=== PATIENT | male | born 1940 | race Caucasian/White ===

== ENCOUNTER 2023-09-14 06:23 | Day surgery (SDC) | payer BC, SELFPAY ==
[2023-08-30 09:50] VITALS: BMI 27.6
[2023-08-30 10:05] LABS: Hematocrit 42.9 % (39.0-52.0); Hemoglobin 14.1 g/dL (13.0-18.0); Mean Corp Hgb Conc. 32.9 g/dL (33.0-37.0); Mean Corpuscular Hgb 31.7 pg (27.0-31.0); Mean Corpuscular Volume 96.4 fL (80.0-94.0); Mean Platelet Volume 10.1 fL (7.4-10.4); Platelet Count 167 10^3/uL (130-400); Red Blood Cell Count 4.45 10^6/uL (4.70-6.10); Red Cell Dist. Width 13.2 % (11.5-14.5); White Blood Cell Count 4.8 10^3/uL (4.8-10.8)
[2023-08-30 10:21] LABS: Blood Urea Nitrogen 17 mg/dl (9-20); Calcium 9.2 mg/dl (8.4-10.2); Carbon Dioxide 26 mmol/L (22-30); Chloride 107 mmol/L (98-107); Estimated Creatinine Clearance 66 ml/min; Glucose 131 mg/dl (70-99); Potassium 4.1 mmol/L (3.5-5.1); Sodium 139 mmol/L (135-145); eGFR > 60.00
[2023-09-14] VITALS (9 sets, daily range): BP systolic 157–170; BP diastolic 93–98; BMI 27.6
[2023-09-14] MEDS: TYLENOL 1000 MG PO (12:48)
== END 2023-09-14 18:55 | disposition home or self-care (01) ==
LOC: SDS 06:23
PROVIDERS: ATTENDING PHYSICIAN Surgery; FAMILY PHYSICIAN Family Medicine
DX: K40.90 Unilateral inguinal hernia, without obstruction or gangrene, not specified as recurrent (principal); K42.9 Umbilical hernia without obstruction or gangrene
CPT/HCPCS: 49650; 49591; 36415; 80048; 85027; C1781

== ENCOUNTER 2024-09-23 06:21 | Day surgery (SDC) | payer BC, SELFPAY | END 2024-09-23 13:37 | disposition home or self-care (01) | LOC: GI 06:21 | PROVIDERS: ATTENDING PHYSICIAN Surgery | DX: Z12.11 Encounter for screening for malignant neoplasm of colon (principal); K64.9 Unspecified hemorrhoids; K57.30 Diverticulosis of large intestine without perforation or abscess without bleeding; D12.2 Benign neoplasm of ascending colon | CPT/HCPCS: 45385; 46221; 88305 ==

== ENCOUNTER → 2024-10-06 06:15 | Day surgery (SDC) | payer BC, SELFPAY ==
[2024-09-10 13:51] VITALS: BMI 27.8
[2024-09-10 14:35] LABS: Hematocrit 40.4 % (39.0-52.0); Hemoglobin 13.1 g/dL (13.0-18.0); Mean Corp Hgb Conc. 32.4 g/dL (33.0-37.0); Mean Corpuscular Hgb 31.7 pg (27.0-31.0); Mean Corpuscular Volume 97.8 fL (80.0-94.0); Mean Platelet Volume 10.2 fL (7.4-10.4); Platelet Count 166 10^3/uL (130-400); Red Blood Cell Count 4.13 10^6/uL (4.70-6.10); Red Cell Dist. Width 13.4 % (11.5-14.5); White Blood Cell Count 4.6 10^3/uL (4.8-10.8)
[2024-09-10 15:45] LABS: ALT (SGPT) 27 U/L (0-50); AST (SGOT) 26 U/L (17-59); Albumin 4.2 g/dl (3.5-5.0); Alkaline Phosphatase 85 U/L (38-126); Blood Urea Nitrogen 20 mg/dl (9-20); Calcium 9.6 mg/dl (8.4-10.2); Carbon Dioxide 29 mmol/L (22-30); Chloride 107 mmol/L (98-107); Estimated Creatinine Clearance 72 ml/min; Glucose 140 mg/dl (70-99); HDL Cholesterol 46 mg/dl; LDL Cholesterol, Calculated 75 mg/dl; Potassium 4.3 mmol/L (3.5-5.1); Sodium 144 mmol/L (135-145); Total Bilirubin 0.6 mg/dl (0.2-1.3); Total Cholesterol 137 mg/dl (50-199); Total Protein 6.6 g/dl (6.3-8.2); Triglyceride 80 mg/dl (10-149); Uric Acid 6.8 mg/dl (3.5-8.5); Very Low Density Lipoprotein 16 mg/dl (0-30); eGFR > 60.00
[2024-09-11 09:03] LABS: Glycohemoglobin (HgbA1c) 6.1 % (4.0-5.6)
[2024-09-11 12:37] LABS: Mumps Virus IgG Positive; Rubeola (Measles) IgG Positive
[2024-09-11 19:59] LABS: Rubella Negative
[2024-09-13 15:48] LABS: PSA Total 0.7 ng/mL (0.0-4.0)
--- NOTE | 2024-09-22 10:07 | VNURNOTE ---
Patient is scheduled for an elective R TKA on 10/06 - he is a same day patient with Dr Sesay. Spoke with patient's spouse Miranda prior to surgery. Introduced role of [facility] VN Liaison. She reports that patient lives with his in a MULTI
story home.
There is 1 step to enter and a flight of steps to the second floor. There is a first floor set up with a bathroom available. patient will obtain a rolling walker.
PCP is Dr Randee Preston
Discussed [facility] joint protocol and post surgical plans.
Reviewed that he will have VN services initially and will then start outpatient PT.
Spouse selects [facility] VN for home care needs and will go to [facility] for outpatient PT. TBD. Advised spouse to schedule outpt PT for the end of the week of surgery.
Spouse is in agreement with plan and states that she and son will be home with patient. Advised to bring RW day of surgery. Referral placed in [facility].
Plan: [facility] VN per [facility] joint protocol on 10/06 then outpt PT TBD
[2024-09-30 09:02] VITALS: BMI 27.8
[2024-10-06] VITALS (12 sets, daily range): BP systolic 114–158; BP diastolic 73–96
[2024-10-06] MEDS: CELEBREX 200 MG PO (07:18)
[2024-10-06] MEDS: TYLENOL 650 MG PO (07:18)
[2024-10-06] MEDS: NORMOSOL-R/PLASMALYTE-A 1000 IV (07:24)
--- NOTE | 2024-10-06 09:25 | W.DS.TRANS ---
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
-
Discharge Instructions:
Discharge Diagnosis/Procedures R TKA 10/06/24
Diet As tolerated
Activity With Walker
Additional Activity -use venous compression device when sitting for
prolonged periods or sleeping
Driving Restrictions No driving
Other Services PT
Instructions:
Stand-Alone Forms: SDS Total Hip and Knee D/C
Changes to Home Medications: Yes
Discharge Medications:
DC Medications w/original date entered in [employer]
glucosamine sulf dipot chlr,msm,chond 550 mg-C 30 mg-mouna 1 mg capsule (Glucosamine Chondroitin) 1 cap PO DAILY 09/10/23
multivitamin 1 tab PO DAILY 09/10/23
omega [id number]-fish oil 1,000 mg (120 mg-180 mg) capsule (Fish Oil) 1 cap PO BID 09/10/23
simvastatin 10 mg tablet 10 mg PO HS 09/10/23
tamsulosin 0.4 mg capsule (Flomax) 0.4 mg PO HS 09/10/23
turmeric root extract 500 mg tablet 1,000 mg PO BID 09/10/23
Collagen Plus Vitamin C 6,000 mg PO DAILY 09/09/24
saw palmetto 450 mg capsule 450 mg PO HS 09/09/24
dexamethasone 4 mg tablet 4 mg PO BID inflammation #6 tabs 09/10/24
famotidine 20 mg tablet 20 mg PO HS GI prophylaxis #30 tabs 09/10/24
gabapentin 300 mg capsule 300 mg PO HS sleep/pain #10 caps 09/10/24
mupirocin 2 % topical ointment 1 applic topical BID infection prevention #1 tube 09/10/24
ondansetron 4 mg disintegrating tablet 4 mg PO Q6H PRN n/v #20 tabs 09/10/24
oxycodone 5 mg tablet 5 mg PO Q6H PRN 1 tab moderate pain, 2 tabs severe pain #30 tabs 09/10/24
acetaminophen 325 mg tablet 650 mg (2 x 325 mg) PO QID #1 tab 04/28/25
aspirin 81 mg tablet 81 mg PO BID Blood clot prevention/tx #1 tab 10/06/24
docusate sodium 100 mg capsule (Colace) 100 mg PO BID stool softner #1 cap 10/06/24
finasteride 5 mg tablet 5 mg PO DAILY #0 tabs 10/06/24
losartan 50 mg tablet 50 mg PO BID #0 tabs 10/06/24
magnesium hydroxide 400 mg/5 mL oral suspension (Milk of Magnesia) 30 ml PO HS PRN constipation #1 mL 10/06/24
sennosides 8.6 mg tablet (Senokot) 17.2 mg (2 x 8.6 mg) PO BID laxative #2 tabs 10/06/24
Home Medication Changes
dexamethasone 4 mg tablet 4 mg PO BID inflammation #6 tabs 09/10/24
famotidine 20 mg tablet 20 mg PO HS GI prophylaxis #30 tabs 09/10/24
gabapentin 300 mg capsule 300 mg PO HS sleep/pain #10 caps 09/10/24
mupirocin 2 % topical ointment 1 applic topical BID infection prevention #1 tube 09/10/24
ondansetron 4 mg disintegrating tablet 4 mg PO Q6H PRN n/v #20 tabs 09/10/24
oxycodone 5 mg tablet 5 mg PO Q6H PRN 1 tab moderate pain, 2 tabs severe pain #30 tabs 09/10/24
acetaminophen 325 mg tablet 650 mg (2 x 325 mg) PO QID #1 tab 10/06/24
aspirin 81 mg tablet 81 mg PO BID Blood clot prevention/tx #1 tab 10/06/24
docusate sodium 100 mg capsule (Colace) 100 mg PO BID stool softner #1 cap 10/06/24
finasteride 5 mg tablet 5 mg PO DAILY #0 tabs 10/06/24
losartan 50 mg tablet 50 mg PO BID #0 tabs 10/06/24
magnesium hydroxide 400 mg/5 mL oral suspension (Milk of Magnesia) 30 ml PO HS PRN constipation #1 mL 10/06/24
sennosides 8.6 mg tablet (Senokot) 17.2 mg (2 x 8.6 mg) PO BID laxative #2 tabs 10/06/24
Pending Results: No
[2024-10-06] MEDS: ANCEF 5 IV (12:51)
[2024-10-06] MEDS: CYKLOKAPRON 650 MG PO (14:20)
--- NOTE | 2024-10-06 15:22 | PTCARENOTE ---
Upon discharge PT noted blood coming out of pt's dressing. Brought back up to [facility]. Transfered to [facility]. Notified Dr. Sesay, ordered to change the dressing, monitor and see MAR. Pt comfortable, denying pain or discomfort. Ambulated pt to
restroom at 1518, [facility] noted further bloody drainage at base of pt's dressing. Contacted Dr. Sesay, he will come see pt. Pt's son back at bedside. Both pt and son updated on plan of care. Pt tolerating PO food and fluids,
has call light.
== END ==
LOC: SDS 06:15
PROVIDERS: ATTENDING PHYSICIAN Specialist; FAMILY PHYSICIAN Family Medicine; REFERRING PHYSICIAN Internal Medicine Cardiovascular Disease
DX: M17.11 Unilateral primary osteoarthritis, right knee (principal)
CPT/HCPCS: 27447; 36415; 73560; 80053; 80061; 83036; 84153; 84154; 84550; 85027; 86735; 86762; 86765; 87070; 97162; C1713; C1776

== ENCOUNTER → 2025-02-11 14:48 | Outpatient (REF) | payer BC, SELFPAY | LOC: RAD 14:48 | PROVIDERS: ATTENDING PHYSICIAN Physician Assistant Surgical | DX: Z96.652 Presence of left artificial knee joint (principal) | CPT/HCPCS: 93971 ==